=== PATIENT | female | born 1990 | race African-American/Black ===

== ENCOUNTER 2024-05-20 08:18 | Emergency (ER) | payer OTHER ==
[~2024-05-20] VITALS: Ht 162.6 cm; Wt 57.2 kg
[2024-05-20 08:31] VITALS: O2SAT 100
[2024-05-20] MEDS: IBUPROFEN 600MG TABLET PO ONE (09:15)
[2024-05-20] MEDS ORDERED: IBUP-2028 MT (10:25)
[2024-05-20] MEDS ORDERED: METH-653 MT (10:25)
[2024-05-20 10:34] VITALS: BP 134/93; PULSE 54; RESP 16; TEMP 98.2
== END 2024-05-20 10:53 | disposition home or self-care (01) ==
LOC: ER 08:26
DX: S33.5XXA Sprain of ligaments of lumbar spine, initial encounter (principal); S73.102A Unspecified sprain of left hip, initial encounter; S83.8X2A Sprain of other specified parts of left knee, initial encounter; V98.8XXA Other specified transport accidents, initial encounter; Y93.89 Activity, other specified; Y92.89 Other specified places as the place of occurrence of the external cause; Y99.8 Other external cause status
CPT/HCPCS: 73502; 73560; 81025; 99284